=== PATIENT | female | born 1930 | race Caucasian/White ===

== ENCOUNTER 2018-07-20 20:32 | Emergency (ER) | END 2018-07-20 22:30 | disposition home or self-care (01) ==

== ENCOUNTER 2019-01-22 18:02 | Emergency (ER) | payer MEDICARE ==
[~2019-01-22] VITALS: Wt 48.0 kg
[~2019-01-22 18:02] MED LIST: ALBU18HF INHALATION; ASPI325T30 PO; D-ME118S6 PO; LEVO750T8 PO
--- NOTE | 2019-01-22 19:11 | ERD ---
ER Documentation Chief Complaint Chief Complaint forehead skin lesion bleeding after picking at it. no trauma. bleeding cont HPI 88-year-old female presents to the ED via ambulance for evaluation of a bleeding lesion on her forehead. Patient reports nonpainful, bleeding is been occurring intermittently for a month. Denies trauma or injury but sometimes scratches. Otherwise asymptomatic. Denies headache, neck or back pain. No chest pain, palpitations, abdominal pain, nausea, vomiting or shortness of breath. Denies recent weight loss, night sweats, anorexia, fevers or chills. ROS All systems reviewed and are negative except as per history of present illness. Medications Home Meds Active Scripts Albuterol Sulfate* (Ventolin HFA*) 18 Gm Hfa.aer.ad, 2 PUFF INHALATION Q4H, #1 INHALER Prov:ELIANA LUGO MD 07/06/16 Dextromethorphan Hb-Promethazine Hcl (Promethazine DM Syrup) 180 Ml Syrup, 10 ML PO Q6H PRN for COUGH, #4 OZ Prov:ELIANA LUGO MD 07/06/16 Levofloxacin* (Levofloxacin*) 750 Mg Tablet, 750 MG PO DAILY for 10 Days, TAB Prov:ELIANA LUGO MD 07/06/16 Reported Medications Aspirin* (Aspirin*) 325 Mg Tablet, 650 MG PO QHS, TAB 07/06/16 Allergies Allergies: Coded Allergies: erythromycin base (Verified Allergy, Severe, RASH SOB\\, 07/06/16) iodine (Verified Allergy, Severe, RASH SOB, 07/06/16) vancomycin (Verified Allergy, Severe, RASH SOB, 07/06/16) Penicillins (Verified Allergy, Mild, 07/06/16) Sulfa (Sulfonamide Antibiotics) (Unverified Allergy, Mild, 07/06/16) RE-ENTERED UNCODED ALLERGY CODED Uncoded Allergies: [id number] (SULFA (SULFONAMIDE ANTIBIOTICS)) (Allergy, Mild, 11/03/09) PMhx/Soc Reviewed in chart. As per HPI. History of Surgery: Yes (APPY, tonsillectomy, "tumor removal") Anesthesia Reaction: No Hx Neurological Disorder: No Hx Respiratory Disorders: No Hx Cardiac Disorders: Yes (mitral valve prolapse, HTN) Hx Psychiatric Problems: No Hx Miscellaneous Medical Probl: Yes (DM) Hx Alcohol Use: No Hx Substance Use: No Hx Tobacco Use: No Smoking Status: Never smoker FmHx No family history of cancer Physical Exam Vitals Vital Signs Date Temp Pulse Resp B/P (MAP) Pulse Ox O2 O2 Flow FiO2 Time Delivery Rate 01/22/19 66 13 170/81 96 Room Air 19:40 (110) 01/22/19 98.2 102 20 16/91 (66) 97 18:17 Physical Exam Const: No acute distress Head: Atraumatic Eyes: Normal Conjunctiva ENT: Normal External Ears, Nose and Mouth. Neck: Full range of motion. No meningismus. Resp: Clear to auscultation bilaterally Cardio: Regular rate and rhythm, no murmurs Abd: Soft, non tender, non distended. Normal bowel sounds Skin: 3 mm central upper forehead ulceration with minimal surrounding swelling. Nontender. Back: No midline or flank tenderness Ext: No cyanosis, or edema Neur: Awake and alert with no focal deficit Psych: Normal Mood and Affect Procedures/MDM DOCUMENTS REVIEWED: ED nurse, our ED, prior records MEDICAL DECISION MAKIN-year-old female presents to the ED via ambulance for evaluation of a one-month history of intermittent bleeding lesion on her forehead. Leading was controlled prior to arrival with a pressure dressing. Differential includes malignant neoplasm and she will need urgent, outpatient dermatology follow-up. Stable for discharge with precautionary instructions and outpatient follow-up as counseled. Though the patient's latest blood pressure was elevated (>120/80), the patient has a known history of hypertension and urged to pursue adjustment of their medical therapy within a week with their primary care physician. Please refer to the medication reconciliation form for the current list of hypertensive medications. Counseled patient regarding diagnostic workup, diagnosis and need for followup. Understands to return to ED if symptoms recur, worsen or any other concerns. Departure Diagnosis: Primary Impression: Hemorrhage of skin lesion Condition: Stable VINNY JAMES MD Jan 22, 2019 19:11
[2019-01-23 06:30] VITALS: BP 118/73; PULSE 76; RESP 16
== END 2019-01-23 15:00 | disposition home or self-care (01) ==
LOC: E/R 18:02
DX: L98.9 Disorder of the skin and subcutaneous tissue, unspecified (principal); I10 Essential (primary) hypertension; E11.9 Type 2 diabetes mellitus without complications; R23.3 Spontaneous ecchymoses; Z79.82 Long term (current) use of aspirin
CPT/HCPCS: 81001; 99283